=== PATIENT | male | born 1965 | race Caucasian/White ===

== ENCOUNTER → 2021-08-18 | Day surgery (SDC) | payer OTHER ==
[~2021-08-18] VITALS: Ht 177.8 cm; Wt 72.6 kg
[~2021-08-18] MED LIST: NORCO 5-325 TA1 EACH PO
[2021-08-18 11:29] LABS: HCT 43.9 % (42.0-52.0); HGB 15.4 g/dl (13.2-18.0); MCH 34.2 pg (25.0-31.0); MCHC 35.1 g/dL (32.0-36.0); MCV 97.6 fL (78.0-100.0); MPV 9.4 fL (6.0-9.5); RBC 4.5 M/uL (4.70-6.00); RDW 11.9 % (11.5-14.0); WBC 6.1 K/uL (4.0-10.5)
[2021-08-18 11:48] LABS: ALBUMIN 3.7 g/dL (3.4-5.0); BILIRUBIN - TOTAL 0.6 mg/dL (0.2-1.0); BUN/CREAT RATIO (CALC) 16.2 RATIO; CREATININE 0.68 mg/dL (0.67-1.17); POTASSIUM 4.1 mmol/L (3.5-5.1); TOTAL PROTEIN 7.7 g/dL (6.4-8.2)
== END | disposition home or self-care (01) ==
LOC: FAS 07:00
PROVIDERS: Orthopaedic Surgery
DX: G56.03 Carpal tunnel syndrome, bilateral upper limbs (principal); M67.432 Ganglion, left wrist; M67.431 Ganglion, right wrist; Z88.5 Allergy status to narcotic agent
CPT/HCPCS: 36415; 80053; J1040; J2250; J2405; J2704; J3010; J7120